=== PATIENT | female | born 1950 | race Caucasian/White ===

== ENCOUNTER 2022-05-09 12:04 | Emergency (ER) | payer MEDICARE ==
[~2022-05-09] VITALS: Ht 160 cm; Wt 48.5 kg
[2022-05-09 13:29] LABS: BASO % 0.2 % (0.0-1.0); HEMATOCRIT 35.4 % (37.0-47.0); LYMPH # 0.5 10*3/uL (1.3-4.4); MEAN CELL VOLUME 92.9 fl (81.0-99.0); MEAN CORPUSCULAR HGB 31.2 pg (27.0-31.0); MEAN CORPUSCULAR HGB CONC 33.6 g/dl (33.0-37.0); MEAN PLATELET VOLUME 10.2 fl (9.6-12.3); MONO # 0.3 10*3/uL (0.1-1.0); MONO % 8.1 % (3.0-9.0); NEUT # 3.2 10*3/uL (2.3-7.9); NEUT % 79.5 % (47.0-73.0); PLATELET COUNT AUTOMATED 88 10*3/uL (130-400); RED BLOOD COUNT 3.81 10*6/uL (4.10-5.10); RED CELL DISTRI WIDTH 14.3 % (0-14.5); WHITE BLOOD COUNT 4.1 10*3/uL (4.8-10.8)
[2022-05-09 13:44] LABS: ALKALINE PHOSPHATASE 88 U/L (46-116); BUN 13 mg/dl (9-23); CHLORIDE 103 mmol/L (98-107); SGPT/ALT 61 U/L (10-49); TOTAL PROTEIN 6.2 gm/dL (6.0-8.0)
[2022-05-09] MEDS ORDERED: BENZONATATE100 M1 PO (14:28)
[2022-05-09] MEDS ORDERED: ONDANSETRON4 MG SL (14:28)
[2022-05-09] MEDS ORDERED: PROVENTIL HFA6.7 GM INH (14:28)
[2022-05-09] MEDS ORDERED: DEXAMETHASONE6 MG PO (14:28)
== END 2022-05-09 14:42 | disposition home or self-care (01) ==
LOC: ED 12:04
PROVIDERS: Internal Medicine
DX: U07.1 COVID-19 (principal); Z88.5 Allergy status to narcotic agent; Z91.041 Radiographic dye allergy status; Z91.013 Allergy to seafood; Z88.8 Allergy status to other drugs, medicaments and biological substances